=== PATIENT | female | born 1955 ===

== ENCOUNTER 2017-04-16 05:48 | Day surgery (SDC) | payer OTHER ==
[~2017-04-16] VITALS: Ht 162.6 cm; Wt 84.8 kg
[2017-04-16] VITALS (10 sets, daily range): BP systolic 116–138; BP diastolic 55–77
[~2017-04-16 05:48] MED LIST: LEVOTHYROXINE100 MCG ORAL; LISINOPRIL-HCT1 EAC2 ORAL
[2017-04-16] MEDS ORDERED: LR 1000ml ONE (07:00)
[2017-04-16] MEDS ORDERED: Midazolam 2mg/2ml Inj ONE (07:00)
[2017-04-16] MEDS ORDERED: Propofol 200mg/20ml IV ONE (07:00)
[2017-04-16] MEDS ORDERED: Lidocaine 1% MPF 10mg/ml 5ml ONE (07:00)
[2017-04-16] MEDS ORDERED: Alfentanil 2ml Inj ONE (07:00)
[2017-04-16] MEDS ORDERED: LR 1000ml 1,000 ML IVLG SCH ×2 (07:00→07:20)
--- NOTE | 2017-04-16 07:09 | Short Stay Surgery H&P ---
History of Present Illness History of Present Illness Chief Complaint See H&P HPI Umu Perez Colleen is a 61 year old female who was admitted on for Gerd,Hx Of Colon Cancer Patient History Allergies: Coded Allergies: LATEX (Verified Allergy, Intermediate, 04/13/17) SKIN RASH AND ITCHING PAST MEDICAL HISTORY: Past Surgeries: Social History: Medication History Scheduled Levothyroxine Sodium* (Levothyroxine Sodium*), 100 MCG ORAL DAILY, (Reported) Lisinopril/Hydrochlorothiazide 20-25 Mg Tab (Lisinopril-Hctz 20-25 Mg Tab), 1 TAB ORAL DAILY, (Reported) Physical Exam Vital Signs Last Vital Signs Date Time Temp Pulse Resp B/P (MAP) Pulse Ox O2 Delivery O2 Flow Rate FiO2 04/16/17 06:21 97.3 56 20 123/66 98 Room Air Plan Attestation Are the patient's medical conditions optimized for surgery? RON BAUER Apr 16, 2017 07:09
--- NOTE | 2017-04-16 07:10 | Pre-Procedure Note/Attestation ---
Pre-Procedure Note/Attestation Complete Prior to Procedure Planned Procedure: not applicable Procedure Narrative: EGD/Colon Indications for Procedure Pre-Operative Diagnosis: GERD, H/O colon polyp Attestation I attest that I discussed the nature of the procedure; its benefits; risks and complications; and alternatives (and the risks and benefits of such alternatives ), prior to the procedure, with the patient (or the patient's legal ocean import representative). I attest that, if there was a reasonable possibility of needing a blood transfusion, the patient (or the patient's legal ocean import representative) was given the [facility] standardized written summary, pursuant to the Venancio Karyn Blood Safety Act ([place] Health and Safety Code # 1645, as amended). I attest that I re-evaluated the patient just prior to the surgery and that there has been no change in the patient's H&P, except as documented below: RON BAUER Apr 16, 2017 07:10
--- NOTE | 2017-04-16 07:20 | Anethesia Preoperative Eval ---
Anesthesia Pre-op PMH/ROS General Date of Evaluation: Apr 16, 2017 Time of Evaluation: 06:56 Anesthesiologist: Arminda ASA Score: ASA 3 Mallampati Score Class I : Soft palate, uvula, fauces, pillars visible Class II: Soft palate, uvula, fauces visible Class III: Soft palate, base of uvula visible Class IV: Only hard plate visible Mallampati Classification: Class II Surgeon: Margie Diagnosis: Abd Pain Surgical Procedure: EGD/Colonosxcopy Anesthesia History: none Family History: no anesthesia problems Allergies: Coded Allergies: LATEX (Verified Allergy, Intermediate, 04/13/17) SKIN RASH AND ITCHING Medications: see eMAR Past Medical History Cardiovascular: Reports: HTN, other - HL Gastrointestinal/Genitourinary: Reports: other - Colon CA Endocrine: Reports: DM, hypothyroidism Anesthesia Pre-op Phys. Exam Physician Exam Last Vital Signs Date Time Temp Pulse Resp B/P (MAP) Pulse Ox O2 Delivery O2 Flow Rate FiO2 04/16/17 06:21 97.3 56 20 123/66 98 Room Air Constitutional: NAD Neurologic: CN 2-12 intact Cardiovascular: RRR Respiratory: CTA Gastrointestinal: S/NT/ND Airway Exam Mallampati Score: Class II MO: full ROM: limited Teeth: intact Anesthesia Pre-op A/P Risk Assessment & Plan Assessment: ASA 3 Plan: GA Status Change Before Surgery: Michael Ortiz MD Apr 16, 2017 07:20
[2017-04-16] MEDS ORDERED: Norco 5mg/325mg tab ORAL PRN (07:30)
[2017-04-16] MEDS ORDERED: DiphenhydrAMINE 50mg/ml Inj IVP PRN (07:30)
[2017-04-16] MEDS ORDERED: Hydromorphone 0.5mg/0.5ml inj IVP PRN (07:30)
[2017-04-16] MEDS ORDERED: Ketorolac 30mg Inj IV PRN (07:30)
[2017-04-16] MEDS ORDERED: Norco 7.5mg/325mg tab ORAL PRN (07:30)
[2017-04-16] MEDS ORDERED: oxyCODONE HCL/Acetaminophen 5/325mg ORAL PRN (07:30)
[2017-04-16] MEDS ORDERED: fentaNYL 100 mcg/2 mL IV PRN (07:30)
[2017-04-16] MEDS ORDERED: Midazolam 2mg/2ml Inj IVP PRN (07:30)
[2017-04-16] MEDS ORDERED: Ketorolac 60mg Inj IV PRN (07:30)
[2017-04-16] MEDS ORDERED: LORazepam Inj 2mg/ml 1ml IV PRN (07:30)
[2017-04-16] MEDS ORDERED: Metoclopramide 10mg/2ml Inj IVP PRN (07:30)
[2017-04-16] MEDS ORDERED: Atropine Inj 1mg/10ml Syr IV PRN (07:30)
--- NOTE | 2017-04-16 07:37 | Immediate Post-Op Evaluation ---
Immediate Post-Op Evalulation Immediate Post-Op Evalulation Procedure: EGD/Colonoscopy Date of Evaluation: Apr 16, 2017 Time of Evaluation: 08:44 IV Fluids: 1000 LR Blood Products: 0 Estimated Blood Loss: 1 Urinary Output: 0 Blood Pressure Systolic: 138 Blood Pressure Diastolic: 65 Pulse Rate: 61 Respiratory Rate: 16 O2 Sat by Pulse Oximetry: 100 Temperature (Fahrenheit): 97 Pain Score (1-10): 2 Nausea: No Vomiting: No Complications 0 Patient Status: awake, reacts, patent, none Hydration Status: adequate Michael Hilliard MD Apr 16, 2017 07:37
--- NOTE | 2017-04-16 07:39 | 48 Hour Post Anesthesia Eval ---
Post Anesthesia Evaluation Procedure: EGD/Colonoscopy Date of Evaluation: Apr 16, 2017 Time of Evaluation: 10:52 Blood Pressure Systolic: 142 0: 79 Pulse Rate: 67 Respiratory Rate: 18 Temperature (Fahrenheit): 98.3 O2 Sat by Pulse Oximetry: 100 Airway: patent Nausea: No Vomiting: No Pain Intensity: 1 Hydration Status: adequate Cardiopulmonary Status: Stable Mental Status/LOC: patient returned to baseline Follow-up Care/Observations: 0 Post-Anesthesia Complications: 0 Follow-up care needed: ready to discharge Michael Hilliard MD Apr 16, 2017 07:39
--- NOTE | 2017-04-16 08:24 | Endoscopy Procedure Note ---
Endoscopy Procedure Note Indication for Procedure: GERD, Colon polyp Procedures Performed: EGD, colonoscopy Operative Findings/Diagnosis: s/p KENTON, Prximal TV polyp (SN/Clip), sig polyp ( Bx) Specimen: yes Pt Tolerated Procedure Well: Yes Estimated Blood Loss: none Anesthesiologist: Arminda Anesthesia: MAC Medication Given: see anesthesia record Implant(s) used?: No 50 yrs or older w/o bx or poly: Yes 10yrs. F/U not recommended: No If not recommended, why?: Above average risk 10 yrs. F/U needed: No 18 years or older w/prev. colo: Yes <3yrs. since last colonoscopy: No Med reason:<3 yrs.: System Reason:<3 yrs.: Last colonoscopy >= to 3yrs: Yes RON BAUER Apr 16, 2017 08:24
--- NOTE | 2017-04-16 08:25 | Brief Operative Note ---
Immediate Post Operative Note Operative Note Chief Complaint: CHRISTOPHER, Polyp Pre-op Diagnosis: GERD, H/O colon polyp Procedure: ENT/Bx, Colon/ Snare/Clip/Bx Post-op Diagnosis: s/p KENTON, Anast erosion, polyps Surgeon: gustavo Anesthesiologist: Arminda Anesthesia: MAC Specimen: yes Complications: none Condition: stable Fluids: see record Estimated Blood Loss: none Drains: none Implant(s) used?: No RON BAUER Apr 16, 2017 08:25
--- NOTE | 2017-04-17 08:31 | Procedure Note ---
DATE OF PROCEDURE: 04/16/2017 PROCEDURE: Upper gastrointestinal endoscopy with enteroscopy and biopsy as well as colonoscopy with snare polypectomy, biopsy, and Endoclip placement. SURGEON: Angie Hanson M.D. ANESTHESIA: Please see the separate anesthesiologist notes for details. PRE-ENDOSCOPIC DIAGNOSES: 1. Symptoms of gastroesophageal reflux. 2. History of malignant colon polyp. POST-ENDOSCOPIC DIAGNOSES: 1. Status post Darlene-en-Y gastric bypass anatomy as described below. 2. Colon polyp in the proximal transverse colon, status post snare polypectomy followed by biopsy of the base, followed by Endoclip placement. 3. Diminutive polyp in the sigmoid colon, status post biopsy removal. 4. Tortuous and redundant colon. DESCRIPTION OF PROCEDURE: The procedure, its risks, indications, alternatives, and possible complications including, but not limited to bleeding, infection, perforation, , and anesthesia complications were explained to the patient and an informed consent was obtained. The patient was then sedated in the left lateral decubitus position and a diagnostic upper endoscope was introduced into the oropharynx and advanced to the duodenum without difficulty. The endoscope was then gradually withdrawn and the mucosa was examined carefully. Examination of the upper gastrointestinal mucosa was introduced into oropharynx and advanced to the small bowel without difficulty. The endoscope was then gradually withdrawn and the mucosa examined carefully. Examination of the upper gastrointestinal mucosa revealed gastric bypass anatomy. There was a 2 cm hiatal hernia. The Z-line was seen at 33 cm from the GE junction, and the diaphragmatic sphincter appeared to be at 35 cm. There was then a gastric pouch going to 45 cm. At this level, there was a gastrojejunal anastomosis with a short candy-cane blind end loop. There was some erosion seen in the small bowel just beyond the anastomosis, which was biopsied. The gastric pouch was also biopsied and sent to pathology for review. The remainder of the upper gastrointestinal examination was unremarkable. The endoscope was then removed and the colonoscope was introduced into the rectum and advanced to the cecum without difficulty. The cecum was identified by the appearance of the ileocecal valve. The colonoscope was then gradually withdrawn and the mucosa examined carefully. The colon contour appeared to be redundant and tortuous. There was a pedunculated polyp seen in the proximal transverse colon, measuring in length about 1 cm, but the width only about 4 mm or so. It was removed with snare polypectomy. The base of the polyp was then examined and perhaps some evidence was seen, and therefore, this area was biopsied until everything was cleared off any polyp material. An Endoclip was placed in the cleft to close it. In the sigmoid area, there was a diminutive polyp, which was biopsied and sent to pathology for review in a separate bottle. The colonoscope was removed and the patient was sent to recovery in good condition. COMPLICATIONS: None. RECOMMENDATIONS: 1. Follow up biopsy results. 2. Continue proton pump inhibitor. 3. Check and treat Helicobacter pylori if positive. 4. Outpatient followup. Thank you for asking me to participate in the care of this patient. Angie Hanson M.D. DR: IRMA JOB#: [id number] CC: DUSTIN
== END 2017-04-16 10:05 | disposition home or self-care (01) ==
LOC: GAS 05:48
DX: K63.5 Polyp of colon (principal); Z98.84 Bariatric surgery status; K21.9 Gastro-esophageal reflux disease without esophagitis; E11.9 Type 2 diabetes mellitus without complications; Z91.040 Latex allergy status; I10 Essential (primary) hypertension; E03.9 Hypothyroidism, unspecified; Z85.038 Personal history of other malignant neoplasm of large intestine; E66.9 Obesity, unspecified; Z68.32 Body mass index [BMI] 32.0-32.9, adult; Z83.3 Family history of diabetes mellitus; Z82.49 Family history of ischemic heart disease and other diseases of the circulatory system; Z82.3 Family history of stroke; E78.5 Hyperlipidemia, unspecified; K44.9 Diaphragmatic hernia without obstruction or gangrene; K29.50 Unspecified chronic gastritis without bleeding
CPT/HCPCS: 43239; 45380; 45385; 82962; J2250; J2704; J3490; J7120; 94003; 94150